=== PATIENT | male | born 1990 | race Caucasian/White ===

== ENCOUNTER 2024-07-03 21:40 | Observation (INO) | payer OTHER, SELFPAY ==
[2024-07-03 21:41] VITALS: BP 135/98; PULSE 58; RESP 16; TEMP 36.4; O2SAT 99; BMI 25.2
--- NOTE | 2024-07-03 22:05 | CT_ITS ---
INDICATION: abdominal pain EXAMINATION: CT Abdomen And Pelvis W/ Contrast Injection TECHNIQUE: Helically acquired images were obtained of the abdomen and pelvis with sagittal and coronal reconstructed images. Individualized dose optimization techniques were used for this CT. IV contrast dosage and agent: 100 mL of Isovue-370. Oral contrast: None. COMPARISON: None. FINDINGS: VESSELS: No abdominal aortic aneurysm or dissection. LIVER: No evidence of a mass. No intrahepatic or extrahepatic biliary duct dilation. GALLBLADDER: No calcified stones. No evidence of cholecystitis. PANCREAS: No focal solid or cystic mass. No evidence of pancreatitis. SPLEEN: Normal. ADRENAL GLANDS: Normal. KIDNEYS AND URETERS: No urinary tract stone. No hydronephrosis or hydroureter. No significant asymmetric perinephric stranding. URINARY BLADDER: Unremarkable. BOWEL: No evidence of diverticulosis or diverticulitis. Appendicolith within the mid appendix with the appendix distal to the appendicolith dilated, fluid-filled and hyperenhancing ortiz measuring 9 mm in diameter. No significant periappendiceal fat stranding. No evidence of perforation. No evidence of bowel obstruction. REPRODUCTIVE ORGANS: No evidence of a pelvic mass. PERITONEUM: No intraabdominal free fluid or free air. LYMPH NODES: No pathologically enlarged mesenteric or retroperitoneal lymph nodes. ABDOMINAL WALL: No abdominal or pelvic wall hernia. BONES: No acute abnormality. Bilateral L5 spondylolysis with minimal anterior spondylolisthesis of L5 on S1. LOWER CHEST: Visualized lung bases are unremarkable. CT/Abdomen/Pelvis W IV Cont ONLY IMPRESSION: Acute appendicitis. Electronically Signed: Juancarlos uBrkett DO at 22:59 EST ,
--- NOTE | 2024-07-03 22:06 | EDS_ITS ---
HPI HPI - GI History of Present Illness Chief Complaint: Abd Pain Detail of Chief Complaint: Abdominal pain Informant: patient Narrative Narrative: Patient presents with abdominal pain at around 6 PM tonight. Patient states that the pain came on gradually and is around his bellybutton. He has had nausea and vomited x 2. Denies fever. Denies urinary symptoms. He thinks he had pain like this before but never this severe. Pain does not radiate to his back or testicles. He has had no prior abdominal surgeries. He said no blood in the stool or black tarry stool. PFSH PFSH Home Medications ?Medication ?Instructions ?Recorded ?Last Taken ?Type NK 07/03/24 Unknown History Allergy/AdvReac Type Severity Reaction Status Date / Time No Known Allergies Allergy Verified 07/03/24 21:43 Surgical History (Updated 07/03/24 @ 21:53 by Vanesa Galindo) Hx of adenoidectomy Social History Smoking Status: Never smoker ROS ROS ED Review of Systems ROS Unobtainable: other Constitutional Constitutional ED: Reports lethargy; Denies chills, fever(s), sweats or weight loss Eyes Eyes: Denies blurry vision, change in vision or diplopia ENT ENT ED: Denies rhinorrhea or sore throat Cardiovascular Cardiovascular: Denies chest pain, orthopnea or racing heartbeat Respiratory/Chest Respiratory/Chest: Denies cough, dyspnea, dyspnea on exertion, orthopnea or sputum Gastrointestinal Gastrointestinal: Reports abdominal pain, nausea and vomiting; Denies diarrhea Genitourinary Genitourinary ED: Denies dysuria, hematuria or urinary frequency Musculoskeletal Musculoskeletal: Denies arthralgias, back pain, myalgias or neck pain Integumentary Denies abscess, Abrasions or rash Neurologic Neurologic: Denies headache(s) or weakness Psychiatric Psychiatric: Denies anxiety, depression or suicidal thoughts Endocrine Endocrinology: Denies polydipsia, polyphagia or polyuria Hematologic/Lymphatic Hematologic/Lymphatic: Denies easy bleeding, easy bruising or lymphadenopathy Allergic/Immunologic Allergic/Immunologic ED: Denies mouth swelling, tongue swelling or urticaria EXAM Physical Exam Const Vital Signs: 07/03/24 21:41 Temperature 97.6 F L Temperature Source Oral Pulse Rate 58 L Respiratory Rate 16 Blood Pressure 135/98 H Blood Pressure Mean 110 Pulse Ox 99 Oxygen Delivery Method Room Air Positive well nourished and well developed General Appearance ED: well developed and NAD HEENT Reports TM's clear and moist mucous membranes normocephalic and atraumatic; Negative for trauma or tenderness Tympanic Membrane ED: Yes TM's clear Eyes PERRL and EOMs intact bilaterally General Eye ED: Negative for pale conjunctiva or scleral icterus Neck no lymphadenopathy, supple and no JVD General: Negative for tenderness Chest Wall inspection of chest normal and palpation of chest normal Chest: Negative for tenderness Resp normal respiratory effort and clear to auscultation bilaterally Effort and Inspection: Negative for respiratory distress or pain with movement Auscultation: Negative for rhonchi, wheezes or diminished lung sounds Cardio regular rate, regular rhythm, S1 normal heart sound, S2 normal heart sound and no murmurs Peripheral Pulses: pulses 2+ throughout GI normal to inspection, nondistended, normoactive bowel sounds, soft to palpation and no masses; Negative for non-distended GI Narrative: Patient with tenderness palpation periumbilically and right lower quadrant with guarding. No rebound, rigidity, or peritoneal signs. No mass palpated. Back/Spine no CVA tenderness and no thoracic nor lumbar tenderness Extremity normal to inspection General Extremety ED: Negative for edema General Extremity: Negative for edema Neuro oriented x3, CN's II-XII intact bilaterally, no sensory deficits noted and gait normal Sensorium / Orientation: awake, alert, oriented to person, oriented to place and oriented to time Motor Exam: strength 5/5 throughout and strength abnormal Psych mental status grossly normal Skin no rashes or lesions noted and no wounds MDM MDM MDM Narrative Medical decision making narrative: Patient with severe abdominal pain started on 6 PM progressively worsened with 2 episodes of vomiting. Pain to lower abdomen and right lower quadrant. Concern for appendicitis versus kidney stone or other acute intra-abdominal process. IV line established. CBC with differential obtained showed white count of 14.4 with hemoglobin 16 and platelet count of 217. Chemistries unremarkable. Urinalysis normal. CTA of the abdomen and pelvis with IV contrast obtained showed acute appendicitis. Patient started on Zosyn. Will discuss with general surgeon to evaluate for definitive care. Will speak with . Lab Data Attestation: I reviewed the patient's lab results. Labs: Laboratory Results - last 24 hr 07/03/24 07/03/24 07/03/24 21:50 21:58 22:15 WBC 14.4 H RBC 5.42 Hgb 16.0 Hct 44.9 MCV 82.8 MCH 29.5 MCHC 35.6 RDW Std Deviation 37.2 RDW Coeff of Axel 12.3 Plt Count 217 MPV 10.6 Immature Gran % (Auto) 0.600 Neut % (Auto) 87.1 H Lymph % (Auto) 7.9 L Morrill % (Auto) 3.8 Eos % (Auto) 0.3 Baso % (Auto) 0.3 Absolute Neuts (auto) 12.5 H Absolute Lymphs (auto) 1.13 Nucleated RBC % 0 Sodium 140 Potassium 4.0 Chloride 103 Carbon Dioxide 33.0 H Anion Gap 4 L BUN 15 Creatinine 1.08 Estim Creat Clear Calc 95.00 Est GFR (MDRD) Af Amer 102 Est GFR (MDRD) Non-Af 84 BUN/Creatinine Ratio 13.9 Glucose 126 H Calcium 9.1 Total Bilirubin 0.30 AST 13 L ALT 22 Alkaline Phosphatase 60 Total Protein 7.2 Albumin 4.1 Globulin 3.1 Albumin/Globulin Ratio 1.3 Urine Color Yellow Urine Clarity Clear Urine pH 6.5 Ur Specific [place] 1.015 Urine Protein Negative Urine Glucose (UA) Normal Urine Ketones Negative Urine Occult Blood Negative Urine Nitrite Negative Urine Bilirubin Negative Urine Urobilinogen Normal Ur Leukocyte Esterase Negative Urine RBC 0 SEEN Urine WBC 0-5 SEEN Ur Squamous Epith Cells 0 SEEN Amorphous Sediment 2+ Urine Bacteria RARE Urine Mucus 0 SEEN Radiography Diagnostic Testing: Clinical Impression(s) from Imaging Studies Abdomen/Pelvis CT 07/03/24 22:05 IMPRESSION: Acute appendicitis. Electronically Signed: Juancarlos Burkett DO at 22:59 EST , EKG Initial EKG: Attestation: I personally reviewed and interpreted this EKG as follows: Comments: EKG ordered by surgeon for preop clearance showed a sinus rhythm with rate of 58 bpm with no acute ST segment changes Discharge Plan Dx/Rx/DC Orders Clinical Impression: Acute appendicitis Disposition Disposition: [facility]
[2024-07-03 22:15] LABS: Absolute Lymphocyte Count 1.13 X10^3/uL (0.83-4.51); Absolute Neutrophil Count 12.5 X10^3/uL (2.0-7.7); Basophil# 0.05 X10^3/uL; Basophil% 0.3 % (0-1); Eosinophil# 0.04 X10^3/uL; Eosinophils% 0.3 % (0-5); Hematocrit 44.9 % (40-54); Lymphocyte # 1.13 X10^3/ul (0.83-4.51); Lymphocyte % 7.9 % (19-41); Mean Corp Hgb Conc 35.6 g/dL (32-36); Mean Corpuscular Hgb 29.5 pg (27.0-32.0); Mean Corpuscular Volume 82.8 fL (80-94); Mean Platelet Vol. 10.6 fl (6.2-12.0); Monocyte# 0.55 X10^3/uL; Monocyte% 3.8 % (0-10); NRBC Flagged by Analyzer 0 % (0-5); Neutrophil # 12.49 X10^3/uL (2.7-7.7); Neutrophil % 87.1 % (47-70); Platelet Count 217 K/mm3 (150-450); RBC Distribution Width CV 12.3 % (11.6-14.6); RBC Distribution Width SD 37.2 fl (35.1-43.9); Red Blood Count 5.42 M/mm3 (4.6-6.2); White Blood Count 14.4 K/mm3 (4.4-11.0)
[2024-07-03] MEDS: Ondansetron 4 MG/2 ML Vial IV (22:16)
[2024-07-03] MEDS: Morphine 4 MG/ML Syringe IV (22:16)
[2024-07-03] MEDS: 0.9% Normal Saline (1000mL) 1,000 ML 999 ML IV (22:17)
[2024-07-03 22:24] LABS: Mucous, Urine 0 SEEN /hpf (<or=2+); Red Blood Cells-Urine 0 SEEN /hpf (0-5); Squamous Epithelial Cells - UA 0 SEEN /hpf (0-5)
[2024-07-03 22:25] LABS: Color, Urine Yellow (Yellow); Glucose, Dipstick Normal (Normal); Ketone-Dipstick Negative (Negative); Leukocyte Esterase-Dipstick Negative /ul (Negative); Nitrite-Dipstick Negative (Negative); Occult Blood-Urine Negative /ul (Negative); Protein-Dipstick Negative (Negative); Specific Gravity, Urine 1.015 (1.002-1.030); Urine Bilirubin Dipstick Negative (Negative); Urine Clarity Clear (Clear); Urine Urobilinogen Normal (Normal); Urine pH 6.5 (5.0 - 8.0)
[2024-07-03 22:31] LABS: ALB/GLOB Ratio 1.3 RATIO (0.9-2.4); AST(SGOT) 13 U/L (15-37); Alanine Aminotransfer ALT/SGPT 22 U/L (16-61); Albumin, Serum 4.1 g/dL (3.2-5.0); Alkaline Phosphatase 60 U/L (45-117); Anion Gap 4 (5-15); BUN 15 mg/dL (7-18); BUN/Creat Ratio 13.9 RATIO (10-20); Calcium,Total 9.1 mg/dL (8.5-10.1); Chloride 103 mmol/L (98-107); Creatinine, Serum 1.08 mg/dL (0.70-1.30); EST Glomerular Filtration Rate 84 mL/min (>60); Est Glom Filt Rate - Afr Amer 102 mL/min (>60); Globulin 3.1 g/dL (2.2-4.2); Glucose 126 mg/dL (74-106); Protein, Total 7.2 g/dL (6.4-8.2); Sodium Level 140 mmol/L (136-145)
[2024-07-03 22:34] LABS: Amorphous Sediment 2+; Bacteria RARE /hpf (None Seen); White Blood Cells 0-5 SEEN /hpf (0-5)
[2024-07-03] MEDS: Piperacil/Tazobactam 4.5 GM in 0.9% Normal Saline (100mL MB+) 100 ML IV (23:24)
--- NOTE | 2024-07-03 23:26 | EKG12_ITS ---
Test Reason : DYSRHYTHMIA Blood Pressure : */* mmHG Vent. Rate : 58 BPM Atrial Rate : 58 BPM P-R Int : 176 ms QRS Dur : 86 ms QT Int : 408 ms P-R-T Axes : 45 24 22 degrees QTcB Int : 400 ms Sinus bradycardia Nonspecific T wave abnormality Abnormal ECG Confirmed by Marcos Bustos ([id number]), news video editor CHRIS CORADO ([id number]) on 07/04/2024 11:50:06 AM Referred By: Senthil Navarro Confirmed By: Marcos Bustos
[2024-07-03 23:28] VITALS: BP 119/92; PULSE 59; RESP 18; TEMP 36.5; O2SAT 99
[2024-07-03 23:29] VITALS: BP 119/92; PULSE 59; RESP 18; TEMP 36.5; O2SAT 99
--- NOTE | 2024-07-03 23:29 | PCM.HP.STD ---
HPI - General HPI Narrative JEN FRANK, is a 34 M who presents with lower abdominal pain. The patient says the pain started around 6 PM. He does have some nausea but no vomiting. He also felt like he had some chills but no fever. PFSH Home Medications ?Medication ?Instructions ?Recorded ?Last Taken ?Type NK 07/03/24 Unknown History Allergy/AdvReac Type Severity Reaction Status Date / Time No Known Allergies Allergy Verified 07/03/24 21:43 Surgical History (Updated 07/03/24 @ 21:53 by Vanesa Galindo) Hx of adenoidectomy Social History Smoking Status: Never smoker ROS Constitutional Constitutional: Reports anorexia and chills; Denies fatigue or fever(s) Eyes Eyes: Denies blurry vision ENT HEENT: Denies abnormal hearing Respiratory/Chest Respiratory/Chest: Denies cough or dyspnea Gastrointestinal Gastrointestinal: Reports abdominal pain and nausea; Denies coffee ground emesis, constipation or vomiting Genitourinary Genitourinary: Denies change in urinary stream or difficulty urinating Musculoskeletal Musculoskeletal: Denies abnormal gait Integumentary Integumentary: Denies new lesions Neurologic Neurologic: Denies abnormal gait Endocrine Endocrinology: Denies heat intolerance Hematologic/Lymphatic Hematologic/Lymphatic: Denies easy bleeding Vital Signs Vital Signs Vital Signs: 07/03/24 21:41 07/03/24 23:28 Temperature 97.6 F L 97.7 F L Temperature Source Oral Pulse Rate 58 L 59 L Respiratory Rate 16 18 Blood Pressure 135/98 H 119/92 H Blood Pressure Mean 110 101 Pulse Ox 99 99 Oxygen Delivery Method Room Air Weight Weight: 166 lb Body Mass Index (BMI) 25.2 Physical Exam Const oriented x3 and no apparent distress Resp normal respiratory effort Cardio regular rate and regular rhythm GI soft to palpation Palpation: tender RLQ Extremity normal to inspection Results Lab / Micro Data 07/03/24 21:50 07/03/24 21:58 Labs: Laboratory Results - last 24 hr 07/03/24 21:50: WBC 14.4 H, RBC 5.42, Hgb 16.0, Hct 44.9, MCV 82.8, MCH 29.5, MCHC 35.6, RDW Std Deviation 37.2, RDW Coeff of Axel 12.3, Plt Count 217, MPV 10.6, Immature Gran % (Auto) 0.600, Neut % (Auto) 87.1 H, Lymph % (Auto) 7.9 L, Caroline % (Auto) 3.8, Eos % (Auto) 0.3, Baso % (Auto) 0.3, Absolute Neuts (auto) 12.5 H, Absolute Lymphs (auto) 1.13, Nucleated RBC % 0 07/03/24 21:58: Sodium 140, Potassium 4.0, Chloride 103, Carbon Dioxide 33.0 H, Anion Gap 4 L, BUN 15, Creatinine 1.08, Estim Creat Clear Calc 95.00, Est GFR (MDRD) Af Amer 102, Est GFR (MDRD) Non-Af 84, BUN/Creatinine Ratio 13.9, Glucose 126 H, Calcium 9.1, Total Bilirubin 0.30, AST 13 L, ALT 22, Alkaline Phosphatase 60, Total Protein 7.2, Albumin 4.1, Globulin 3.1, Albumin/Globulin Ratio 1.3 07/03/24 22:15: Urine Color Yellow, Urine Clarity Clear, Urine pH 6.5, Ur Specific [place] 1.015, Urine Protein Negative, Urine Glucose (UA) Normal, Urine Ketones Negative, Urine Occult Blood Negative, Urine Nitrite Negative, Urine Bilirubin Negative, Urine Urobilinogen Normal, Ur Leukocyte Esterase Negative, Urine RBC 0 SEEN, Urine WBC 0-5 SEEN, Ur Squamous Epith Cells 0 SEEN, Amorphous Sediment 2+, Urine Bacteria RARE, Urine Mucus 0 SEEN Imaging Radiology Impression Abdomen/Pelvis CT 07/03/24 22:05 IMPRESSION: Acute appendicitis. Electronically Signed: Juancarlos BurkettDO at 22:59 EST Reading Location ID and State: [facility] / [place] Tel , Service support , Assessment & Plan Assessment/Plan (1) Acute appendicitis: QUALIFIERS: Acute appendicitis type: unspecified acute appendicitis type Qualified Code(s): K35.80 - Unspecified acute appendicitis PLAN: Patient has acute appendicitis. I went over his CAT scan results with him. I discussed laparoscopic appendectomy. I discussed the procedure as well as the risks including but not limited to bleeding, infection, injury other organs such as the bowel, bladder, ureter. Patient understands the risks and is willing to proceed. I will give the patient antibiotics and admit to the floor. Plan for surgery in the morning. Ward Perez MD Pager: [facility] [address] [place] [address], [address] [place] [address] Office:
[2024-07-03] MEDS: Morphine 2 MG/ML Syringe IV (23:37)
[2024-07-04] VITALS (18 sets, daily range): BP systolic 104–138; BP diastolic 62–100; PULSE 0–100; RESP 14–18; TEMP 36.1–36.9; O2SAT 95–100; BMI 24.8
[2024-07-04] MEDS: 0.9% Normal Saline (1000mL) 1,000 ML 100 ML IV ×2 (00:48→09:14)
[2024-07-04] MEDS: Morphine 2 MG/ML Syringe IV (03:45)
[2024-07-04] MEDS: Piperacil/Tazobactam 3.375 GM in 0.9% Normal Saline (50mL MB+) 50 ML IV (05:51)
--- NOTE | 2024-07-04 06:26 | PCM.PRE.AN2 ---
ASA Classification* ASA Classification ASA Classification: 2 and E Assessment & Plan Anesthesia* Anesthesia Assessment Anesthesia Assessment: Discussed sedation and/or anesthesia options, risks, benefits, and alternatives with patient/parents/legal guardian/POA. Questions invited. The patient/parents/legal guardian/POA seems to understand and agrees to proceed with anesthesia plan. Reviewed the physical assessment, medical history, allergy history and patient home medications list prior to surgery/procedure/anesthetic and documented any changes. Performed airway and anesthesia risk assessments. Anesthesia Type Anesthesia Type: General Anesthesia Focused Assessment* Temperature: 98.4 F Pulse Rate: 73 Blood Pressure: 138/100 Respiratory Rate: 16 Pulse Ox: 100 Airway Assessment Mouth opens: >3 cm Mallampati Score: II Focused Labs Anesthesia Preop lab: CBC WBC 14.4 K/mm3 (4.4-11.0) H 07/03/24 21:50 RBC 5.42 M/mm3 (4.6-6.2) 07/03/24 21:50 Hgb 16.0 g/dL (13.0-16.5) 07/03/24 21:50 Hct 44.9 % (40-54) 07/03/24 21:50 Plt Count 217 K/mm3 (150-450) 07/03/24 21:50 CHEMISTRY Potassium 4.0 mmol/L (3.5-5.1) 07/03/24 21:58 Sodium 140 mmol/L (136-145) 07/03/24 21:58 BUN 15 mg/dL (7-18) 07/03/24 21:58 Creatinine 1.08 mg/dL (0.70-1.30) 07/03/24 21:58 Glucose 126 mg/dL (74-106) H 07/03/24 21:58 TSH 1.78 uIU/mL (0.358-3.74) 01/27/14 12:25 COAG Pre-Assessment Diagnosis/Proposed Procedure Planned Operative Procedure(s): laproscopic appendectomy Anesthesia History 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 When Was Last Pacemaker Check QUESTION #4 FULL TEXT: You/Your Family Experience fever (hyperthermia) with Anesthesia Last Oral Intake Last Oral intake: Last Oral Intake NPO since 18:30 07/04/24 00:34 Meds taken in AM with sips of water? Meds patient instructed to take am of surgery PONV PONV - quenching machine operator: PONV - quenching machine operator Female HX of Motion Sickness HX of N/V After Surgery Non-Smoker Duration of Surgery greater than 60 minutes Number of Risk Factors PONV Score Height & Weight Height & Weight: Anesthesia: Height & Weight Height 5 ft 8 in 07/04/24 00:34 Weight: 74.117 kg 07/04/24 00:34 Body Mass Index (BMI) 24.8 07/04/24 00:34 Respiratory Assessment Respiratory Assessment - quenching machine operator: Respiratory Tract Infection Hx - quenching machine operator Hx Respiratory Tract Infection No 07/04/24 00:34 STOP Sleep Apnea STOP Sleep Apnea - quenching machine operator: STOP Sleep Apnea - quenching machine operator Hx Hypertension No 07/04/24 00:31 Hx Sleep Apnea No 07/04/24 00:31 CPAP BIPAP Do you snore loudly (louder No 07/04/24 00:31 than talking or can be heard Do you often feel tired/ No 07/04/24 00:31 fatigued/ sleepy during daytime? Has anyone observed you stop No 07/04/24 00:31 breathing during sleep? STOP Results Negative 07/04/24 00:31 QUESTION #5 FULL TEXT : Do you snore loudly (louder than talking or can be heard through closed doors)? 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 Specify any problems Hx of Preganancy in last 3 N/A 07/04/24 00:31 Months Nurse Filling Out Transfusion TMELLOR 07/04/24 00:31 & Questions: Date: 07/04/24 07/04/24 00:31 Time: 00:32 07/04/24 00:31 Patient unable to answer at this time (ie. confused, unrespo /Reproduction History /Reproductive History - quenching machine operator: /Reproductive Hx- quenching machine operator Hx Now Gestational Age (in weeks): EDC: Hx Hx Para Hx Section SAB Active Medications Active Medications: Current Medications Generic Name Dose Route Start Last Admin Trade Name Freq PRN Reason Stop Dose Admin Sodium Chloride 1,000 mls @ 100 mls/hr 07/03/24 23:30 07/04/24 05:51 IV 07/04/24 19:29 0 mls/hr .Q10H FLACO Infusion Protocol Piperacillin Sod/Tazobactam 50 mls @ 12.5 mls/hr 07/04/24 06:00 07/04/24 05:51 Sod 3.375 gm/ Sodium Chloride IV 12.5 mls/hr Q8 FLACO Administration Sodium Chloride 500 mls @ 15 mls/hr 07/04/24 00:20 IV .[id number] PRN Saline Flush Morphine Sulfate 2 - 4 mg 07/03/24 23:28 07/04/24 03:45 Morphine 2 Mg/Ml Syringe IV 2 mg Q2H PRN PRN Administration Pain Score 4-10 Ondansetron HCl 4 mg 07/03/24 23:28 Ondansetron 4 Mg/2 Ml Vial IV Q6H PRN PRN NAUSEA/VOMITING Sodium Chloride 10 - 40 ml 07/03/24 23:28 0.9% Saline Lock 10 Ml Syringe IV UD PRN SALINE FLUSH Sodium Chloride 10 - 40 ml 07/03/24 23:28 0.9% Saline Lock 10 Ml Syringe IV UD PRN SALINE FLUSH Sodium Chloride 10 - 40 ml 07/04/24 00:20 0.9% Saline Lock 10 Ml Syringe IV UD PRN SALINE FLUSH PFSH Home Medications ?Medication ?Instructions ?Recorded ?Last Taken ?Type NK 07/03/24 Unknown History Allergy/AdvReac Type Severity Reaction Status Date / Time No Known Allergies Allergy Verified 07/03/24 21:43 Surgical History (Updated 07/03/24 @ 21:53 by Vanesa Galindo) Hx of adenoidectomy Social History Smoking Status: Never smoker Review of Systems (Anesthesia) ROS Narrative System reviewed and no additional complaints, except as documented.
[2024-07-04] MEDS: Bupiv/Epi 0.25% 30 ML Vial (07:05)
--- NOTE | 2024-07-04 07:36 | OP.PCM_ITS ---
Operative Report (Standard) Operative Information Surgery/Procedure Performed: Laparoscopic appendectomy Surgeon: Ward Perez Date of Procedure: 07/04/24 Procedure Start Time: 06:52 Procedure Stop Time: 07:08 Pre-Operative Diagnosis: Acute appendicitis Post-Operative Diagnosis: Acute appendicitis Select all DRAINS/GRAFTS/IMPLANTS that apply: None Type of Anesthesia: General/Regional Estimated Blood Loss: 10 Specimen collected: Yes Description of specimen(s) removed: Appendix Description of surgery: The patient was brought into the operating room and general anesthesia was induced. The left arm was tucked and the abdomen was prepped and draped in usual sterile fashion. A small midline incision was made superior to the umbilicus and deepened to the level of the fascia. The fascia was elevated and incised. The peritoneum was also elevated and incised. A finger sweep was performed and a balloon trocar was placed into the abdomen and inflated. The abdomen was insufflated to 15 mmHg and the camera was inserted and the abdomen was inspected for any injuries upon entering the abdomen. There were none. The patient was placed in Trendelenburg position and a 5 mm ports placed in the left lower quadrant and suprapubic areas under direct visualization. Next using atraumatic bowel graspers the appendix was identified. The appendix was grasped and elevated and Enseal was used to take down the mesoappendix. A stapler was used to come across the base of the appendix. The appendix was then placed in Endo Catch bag and removed through the umbilical incision. The staple line was inspected and found to be hemostatic and intact. The 2 5 mm ports are removed under direct visualization. The balloon trocar was deflated and removed and all the air was removed from the abdomen. The umbilical incision fascia was closed with an 0 Vicryl [id number] suture. The incisions were then irrigated with saline and dried. Local anesthetic was injected into the incision sites. The skin incisions were then closed with interrupted 4-0 Monocryl suture and Steri- Strips. Bandages were applied. The patient became severely bradycardic to the point where he needed chest compressions and a CODE BLUE was called. Atropine was given and there was a spontaneous return of pulse. Patient was then extubated and brought to PACU in stable condition and chest x-ray and EKG will be performed. 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
--- NOTE | 2024-07-04 07:39 | EKG12_ITS ---
Test Reason : O Blood Pressure : */* mmHG Vent. Rate : 80 BPM Atrial Rate : 80 BPM P-R Int : 146 ms QRS Dur : 86 ms QT Int : 394 ms P-R-T Axes : 39 53 41 degrees QTcB Int : 454 ms Normal sinus rhythm Nonspecific T wave abnormality Abnormal ECG When compared with ECG of 03-Jul-2024 23:51, MANUAL COMPARISON REQUIRED DATA IS UNCONFIRMED Confirmed by Marcos Bustos ([id number]), technical writer and editor CRYSTAL LARA ([id number]) on 07/05/2024 1:52:50 PM Referred By: Senthil Navarro Confirmed By: Marcos Bustos
--- NOTE | 2024-07-04 07:45 | RAD_ITS ---
STUDY: X-RAY CHEST REASON FOR EXAM: Male, 34 years old. Chest compressions TECHNIQUE: Single AP portable view of the chest. COMPARISON: None. FINDINGS: EKG electrodes are seen. Mild increased markings at the left lung base suggestive of left basilar atelectasis. There is no demonstrated pleural abnormality. Normal size heart. Normal mediastinum and adela. Normal visualized pulmonary arteries. Normal visualized aortic arch and descending thoracic aorta. Normal visualized thoracic spine. Normal visualized ribs, clavicles, and shoulders. There is no demonstrated abnormality of the visualized soft tissue structures of the upper abdomen. RAD/Chest 1 View (Portable) IMPRESSION: Findings suggestive of left basilar atelectasis. Electronically Signed: Alban Echols MD at 8:35 EST ,
--- NOTE | 2024-07-04 08:07 | PCM.POST.ANE ---
Anesthesia: Postop Eval I Current Vital Signs Temperature: 98 F Pulse Rate: 100 Blood Pressure: 111/65 Respiratory Rate: 16 Pulse Ox: 100 Oxygen Delivery Method: Room Air Assessment Airway patent: Yes Spontaneous unlabored respirations: Yes nausea: No Vomiting: No Anesthesia Complication: Yes Anesthesia Complication Comment:: pt with 20-30 second pause heart, with neostigmine iv administration OR. responded well to robinol, Atropine subsequently. post EKG WNL. possibly mild dehydration contributed to the bradycardia . Fluid Hydration Crystalloid volume administer (ml): 1,100 Total IV fluid infused: 1,100 Progress Note Anesthesia document: Postop Eval 1 completed: Yes
--- NOTE | 2024-07-04 08:11 | PCM.POSTANE2 ---
Anesthesia Postop Eval I Sum Postop Eval Completion status Anesthesia document: Postop Eval 1 completed: Yes Anesthesia Postop Eval I Summary Anesthesia Postop Eval I Summary: Anesthesia Postop Eval I: Assessment Summary Airway patent Yes 07/04/24 08:11 Spontaneous unlabored Yes 07/04/24 08:11 respirations Mental status nausea No 07/04/24 08:11 Vomiting No 07/04/24 08:11 Anesthesia Postop Eval I: Fluid Summary Crystalloid volume administer 1,100 07/04/24 08:11 (ml) Colloids volume administered ( ml) Blood Product volume administered (ml) Total IV fluid infused 1,100 07/04/24 08:11 Anesthesia Postop Eval I: Summary Notes Anesthesia Complication Yes 07/04/24 08:11 Anesthesia Complication pt with 20-30 07/04/24 08:11 Comment: second pause heart , with neostigmine iv administration OR. responded well to robinol, Atropine subsequently. post EKG WNL. possibly mild dehydration contributed to the bradycardia . Post-operative progress note Anesthesia: Postop Eval II Evaluation Mental status: Awake Pain Level: 1 nausea: No Vomiting: No
--- NOTE | 2024-07-04 08:50 | NURSING ---
attempted to contact warehouse delivery driver after got report from pacu
--- NOTE | 2024-07-04 08:51 | NURSING ---
got a call from PACU, they talked with Dr. Perez regarding pt returning to med surg. per [facility] RN Dr. Perez states ok to return to med surg on tele.
--- NOTE | 2024-07-04 08:52 | NURSING ---
talked with unit tender regarding pt returning to med surg after receiving report from pacu. awaiting to get response from editor house organ.
--- NOTE | 2024-07-04 09:07 | APP_PTH ---
PATIENT: JEN FRANK LOC: [facility] U#:[id number] AGE/SX: 34/M ROOM: [facility] [place] RE07/03/[address]: Dr. Ward Perez MD : 1990 BED: 1 DIS: 07/04/2024 SPEC #: [id number] RECD: 07/04/24 09:07 STATUS: LON REChris #: [id number] RITU: 07/04/24 09:[address]: Ward Perez DEPT: SURGICAL PATHOLOGY RECD BY: Susan Ruiz ENTERED: 07/04/24 10:04 SP TYPE: APPENDIX OTHR DR: Dr. Senthil Navarro, DO No Primary Care Phys Tissues: Appendix, NOS Procedures: Surgery Specimen Level III HEADER OPERATION: Laparoscopic appendectomy PRE-OP DIAGNOSIS: Acute appendicitis TISSUE SUBMITTED: Appendix MICROSCOPIC DIAGNOSIS Appendix, appendectomy: Acute necrotizing appendicitis. Acute serositis. AM. 07/05/2024 MICROSCOPIC DESCRIPTION Slides are reviewed. GROSS DESCRIPTION Received in fixative is one container labeled with the patient's name and designated appendix. The specimen consists of a vermiform appendix measuring 7.0 cm in length and 1.0 cm in average diameter. No gross perforations are evident. Serial sections reveal a patent lumen with fecal material. No mass lesion is identified. Maintenance Manager sections are submitted in one cassette. / AM: 07/04/2024 TC:2 CPT: 92419
--- NOTE | 2024-07-04 09:25 | NURSING ---
talked to warehouse laborer. aware patient is to stay med surg tele stating was not a cardiac event.
[2024-07-04] MEDS: oxyCODONE 5 MG Tablet PO ×2 (10:18→17:14)
--- NOTE | 2024-07-04 11:15 | EX.PCM.DISCH ---
Discharge Instructions Procedure Appendectomy Diet Discharge Diet: Light diet - advance as tolerated Activity Discharge Activity: May Not Drive (for 2-3 days or while taking narcotic pain medications.) and - (Do not drive, work heavy equipment or sign legal documents for 24 hours.) May shower in (days): 1 Lifting Restrictions: 20 lbs for 2 weeks Additional Activity Instructions:: Pain medication may cause nausea. You should typically eat light foods as you take your pain medications. Pain medication may also cause constipation. If this is a problem for you, please discuss with your doctor. Alternate ibuprofen and Tylenol for pain control, oxycodone for breakthrough pain. Dressing / Incision Call your doctor if your incision/area has: Continuous Slow Oozing, Sudden Increased Bleeding, Increased Pain/ Swelling, Increased Redness and Foul Smelling Discharge Call your doctor if you observe: Fever of 101 or Higher Suture Line Care: Avoid Pulling/Pushing and Avoid Pinching/Bending Remove Dressing in: 2 days Additional Dressing/Incision Instructions:: Leave operative bandaids on for 2 days. When you remove dressing, leave Steri-Strips on until your follow-up appointment, or until the Steri-Strips fall off on their own. Follow Up Care Please Follow Up With: Ward Perez MD When: Please call to schedule 2 week follow up appointment. [phone] Test Results: Test results from this visit will be discussed in further detail at your follow-up appointment, if applicable. Discharge Plan Admission Admit Date/Time: 07/03/24 23:28 Attending Provider: Ward Perez Primary Care Provider: Care Physician,No Primary Discharge Orders/Prescriptions Prescriptions: New oxycodone 5 mg Tablet 5 - 10 mg PO Q4H PRN PRN (Reason: Pain Score 4-10) 5 Days Qty: 14 0RF Referrals / Follow Up: Francisco,Hannah, DO [Med Staff - Monitoring Specialist] - Care Physician,No Primary [Primary Care Provider] - Disposition Disposition (needs filled in before D/C Order can be placed): Home, Self Care
[2024-07-04] MEDS: Acetaminophen 325 MG Tablet 650 MG PO ×2 (12:58→17:14)
--- NOTE | 2024-07-04 13:12 | CASEMGMT ---
GEOVANNA WOLF noted no PCP on chart but also listed . GEOVANNA WOLF into pt room, pt sitting up in bed with family at bedside. Pt states he has seen in the past. Pt states that she is working on getting pt switched to [facility] where she goes. She denies any need with assistance with this. Pt denies any homegoing needs.
--- NOTE | 2024-07-04 14:46 | CASEMGMT ---
Social Work- Pt is listed as self-pay. Pt declines [facility]. Pt is a part of the plain community and d/t jainism beliefs, does not participate in [employer]; does not require [facility] referral. ISAÍAS Valles
== END 2024-07-04 17:45 | disposition home or self-care (01) ==
LOC: ED 23:14 → MS3 23:55
PROVIDERS: Admitting Provider Surgery; Emergency Provider Emergency Medicine; Referring Provider Emergency Medicine; Visit Provider Surgery
PROC: 0DTJ4ZZ Resection of Appendix, Percutaneous Endoscopic Approach (ICD-10-PCS; CPT 44970; principal; 2024-07-04 06:00)
DX: K35.80 Unspecified acute appendicitis (principal)
CPT/HCPCS: 44970; 00840; 71045; 74177; 80053; 81001; 85025; 88304; 93005; 94668; 96361; 96365; 96375; 96376; 99221; 99284; Q9967; A4216; G0378; J2405